=== PATIENT | male | born 1985 | race Caucasian/White ===

== ENCOUNTER 2022-12-20 10:58 | Outpatient (CLI) | payer OTHER ==
[~2022-12-20] VITALS: Ht 172.7 cm; Wt 97.1 kg
[2022-12-20] MEDS ORDERED: RT-ALBUINH INH (13:14)
== END 2022-12-20 13:18 | disposition home or self-care (01) ==
LOC: PREOP 10:58
PROVIDERS: ATTEND Surgery
DX: Z01.818 Encounter for other preprocedural examination (principal)

== ENCOUNTER 2022-12-27 09:45 | Day surgery (SDC) | payer OTHER ==
[~2022-12-27] VITALS: Ht 172.7 cm; Wt 97.1 kg
[2022-12-27] VITALS (8 sets, daily range): BP systolic 111–132; BP diastolic 63–82
[~2022-12-27 09:45] MED LIST: RT-ALBUINH INH
--- NOTE | 2022-12-27 10:03 | Progress Note-Pre Operative ---
Pre-Operative Progress Note Date of Available H&P: Dec 16, 2022 Date H&P Reviewed: Dec 27, 2022 Time H&P Reviewed: 10:02 History & Physical: H&P Reviewed, Patient Examed, No changes noted Pre-Operative Diagnosis: Melena, Nausea HAILEY MARK DO Dec 27, 2022 10:03
[2022-12-27] MEDS ORDERED: LACTATED RINGERS 1,000 ML IV ONE (10:06)
[2022-12-27] MEDS ORDERED: HURRICAINE EXT TUBE (BENZOCAINE) ONE (10:06)
[2022-12-27] MEDS ORDERED: LACTATED RINGERS 1,000 ML IV STA (10:07)
[2022-12-27] MEDS ORDERED: HURRICAINE EXT TUBE (BENZOCAINE) XX PRN (10:15)
[2022-12-27] MEDS ORDERED: MIDAZOLAM 2 MG/2 ML (VERSED) VIAL ONE (10:53)
[2022-12-27] MEDS ORDERED: PROPOFOL INJECTION 50 ML IV ONE (10:53)
[2022-12-27] MEDS ORDERED: KETAMINE 50 MG/5 ML SYRINGE ONE (10:53)
[2022-12-27] MEDS ORDERED: proPOfol 200 MG/20 ML (DIPRIVAN) VIAL IV ONE (11:15)
--- NOTE | 2022-12-27 11:41 | Progress Note-Post Operative ---
Post-Operative Progess Note Surgeon (s)/Meat Packager (s) Surgeon HAILEY MARK DO Meat Packager: Alisha Cannon, MSIII Pre-Operative Diagnosis Melena, Nausea Post-Operative Diagnosis Gastritis Hiatal Hernia - Grade IV rectal polyp int hemorrhoids Procedure & Operative Findings Date of Procedure 12/27/22 Procedure Performed/Findings EGD with bx Colonoscopy with cold bx PROCEDURE NOTE: After informed consent was obtained, the patient was brought to the endoscopy suite, placed in bed in left lateral decubitus position. He was administered IV sedation by the V BLOCK SAW OPERATOR who then monitored vitals the entire time, heart rate, blood pressure and pulse ox and the scope was inserted down the mouth through the esophagus into the stomach. Pushed into the stomach, encoutered what looked like a narrowing and the scope retroflexed; could see the previous wrap. Pushed past this and could visualize the antrum and theninto the duodenum. Duodenum looked good. Pulled back and did a biopsy of the antrum, then retroflexed the scope and again saw the "narrowing"; which I think was the hiatal hernia. It was very large and could indicate half the stomach above the GE junction. Took a picture of this and then pulled the scope into this area, took another picture of the hiatal hernia and then did a biopsy in this area. Pushed the scope back into the stomach, suctioned all the air out of the stomach. At this point pulled the scope up the esophagus and out the mouth. Switched camera, switched gloves, went down below and started the colonoscopy. Pushed all the way to about 150 cm and pushed into the cecum, took a picture of appendiceal orifice and noted the ileocecal valve. Then slowly withdrew the scope insufflating to look circumferentially at the haddad starting in the cecum, up the ascending colon to the hepatic flexure, then down the transverse colon, splenic flexure, into the descending colon down in the sigmoid and then into the rectal vault and retroflexed the scope. Saw a small polyp and hemorrhoids; took a picture of the internal hemorrhoids and biopsied the rectal polyp. The patient tolerated the procedure and he recovered in the endoscopy suite. Recommended for repeat colonoscopy in 5 years Anesthesia Type IV sedation by V BLOCK SAW OPERATOR Estimated Blood Loss Estimated blood loss (mL): scant Specimens/Packing Specimens Removed antral bx body of stomach bx rectal polyp HAILEY MARK DO Dec 27, 2022 11:41
--- NOTE | 2022-12-27 11:42 | Endoscopy Discharge Instruct ---
Endo Procedure/Findings Findings 1.: Gastritis 2.: Hiatal Hernia 3.: Polyp 4.: Internal Hemorrhoids Discharge Instructions - Activity: You might feel a little sleepy until tomorrow. This is due to the medicine you received to relax you. Until tomorrow, you should: NOT drive a car, operate machinery or power tools. NOT drink any alcoholic beverages. NOT make any important decisions or sign importortant papers. Do not return to work until tomorrow, unless otherwise instructed. Resume previous activities tomorrow. Diet: Start by taking liquids. If you tolerate liquids, advance to solid food. 1.: EGD in 1 year 2.: Colonscopy in 5 years Notify Physician - If you experience excessive bleeding, unusual abdominal pain, fever, or chest pain, contact your doctor immediately. HAILEY MARK DO Dec 27, 2022 11:42
--- NOTE | 2022-12-27 12:09 | Anesthesia-General Post-Op ---
MAC Patient Condition Mental Status/LOC: Same as Preop Cardiovascular: Satisfactory Nausea/Vomiting: Absent Respiratory: Satisfactory Pain: Controlled Complications: Absent Post Op Complications Complications None Follow Up Care/Instructions Patient Instructions None needed. Anesthesiology Discharge Order Discharge Order Patient is doing well, no complaints, stable vital signs, no apparent adverse anesthesia problems. No complications reported per nursing. JEB SMITH 13, 2023 12:09
== END 2022-12-27 12:30 | disposition home or self-care (01) ==
LOC: ENDO 09:45
PROVIDERS: ATTEND Surgery
DX: K29.71 Gastritis, unspecified, with bleeding (principal); K44.9 Diaphragmatic hernia without obstruction or gangrene; K62.1 Rectal polyp; K64.8 Other hemorrhoids; Z80.0 Family history of malignant neoplasm of digestive organs; E66.9 Obesity, unspecified; F17.290 Nicotine dependence, other tobacco product, uncomplicated; Z68.32 Body mass index [BMI] 32.0-32.9, adult